=== PATIENT | male | born 1960 | race Caucasian/White ===

== ENCOUNTER 2021-04-26 06:29 | Day surgery (SDC) | payer OTHER ==
[~2021-04-26] VITALS: Ht 172.7 cm; Wt 77.3 kg
[2021-04-26] MEDS ORDERED: LIDOCAINE 4% 50 ML SOLUTION TP ONE (06:30)
[2021-04-26] MEDS ORDERED: LIDOCAINE 2% 30 ML JELLY TP ONE (06:30)
[2021-04-26] MEDS ORDERED: ALBUTEROL SULFATE 2.5 MG/0.5 ML NEB SOLUTION NEB ONE (06:30)
[2021-04-26] MEDS ORDERED: BENZOCAINE 20% 50 MCG/SPRAY 57 GM TP ONE (06:30)
[2021-04-26] MEDS ORDERED: SODIUM CHLORIDE 0.9% 1,000 ML ONE (06:33)
[2021-04-26] MEDS ORDERED: SODIUM CHLORIDE 0.9% 1,000 ML IV ONE (07:00)
[2021-04-26 07:20] LABS: GLUCOMETER DEV NAME(LOC) SDS.; GLUCOSE,POINT OF CARE 114 MG/DL (70-110)
[2021-04-26] MEDS ORDERED: FentaNYL CITRATE PF 100 MCG/2 ML VIAL ONE (07:38)
[2021-04-26] MEDS ORDERED: MIDAZOLAM HCL 5 MG/ML VIAL ONE (07:38)
[2021-04-26 07:46] LABS: COVID AG,FIA SOURCE NASOPHARYNGEAL
[2021-04-26] MEDS ORDERED: METO50 PO (07:53)
[2021-04-26] MEDS ORDERED: PHEN-846 PO (07:53)
[2021-04-26] MEDS ORDERED: SENN8.6T20 PO (07:53)
[2021-04-26] MEDS ORDERED: BISA-151 PO (07:53)
[2021-04-26] MEDS ORDERED: SIME80TA14 PO (07:53)
[2021-04-26] MEDS ORDERED: ASCO500 PO (07:53)
[2021-04-26] MEDS ORDERED: AMPI500C68 PO (07:53)
[2021-04-26] MEDS ORDERED: CLON-592 PO (07:53)
[2021-04-26] MEDS ORDERED: TAMS-13 PO (07:53)
[2021-04-26] MEDS ORDERED: IPRA3AMP23 IH (07:53)
[2021-04-26] MEDS ORDERED: MethylPREDNISolone SOD SUCC 125 MG/2 ML VIAL IVP ONE (08:45)
[2021-04-26] MEDS ORDERED: MethylPREDNISolone SOD SUCC 125 MG/2 ML VIAL ONE (09:32)
[2021-04-26] MEDS ORDERED: OXYGEN THERAPY IH SCH (20:00)
== END 2021-04-26 11:47 ==
LOC: SURGERY 06:29
PROVIDERS: ATTEND Internal Medicine Critical Care Medicine
DX: J38.4 Edema of larynx (principal); B37.0 Candidal stomatitis; I11.0 Hypertensive heart disease with heart failure; I50.9 Heart failure, unspecified; F41.9 Anxiety disorder, unspecified; F20.9 Schizophrenia, unspecified; Z79.899 Other long term (current) drug therapy
CPT/HCPCS: 31623; 31624; 71045; 82962; 87015; 87070; 87077; 87101; 87206; 87220; 87426; 88108; 88184; 88185; 88312; 93005; C9803; J2250; J2930; J3010; J7030; J7613; Z7610